=== PATIENT | male | born 1980 | race American Indian/Alaskan Native ===

== ENCOUNTER 2016-11-23 11:14 | Emergency (ER) | payer OTHER, SELFPAY ==
[2016-11-23 13:07] LABS: BLOOD UREA NITROGEN 9 mg/dL (7-18)
[2016-11-23 18:19] VITALS: BP 111/60
== END 2016-11-23 18:21 | disposition home or self-care (01) ==
LOC: ED 13:50
DX: F10.221 Alcohol dependence with intoxication delirium (principal)
CPT/HCPCS: 36415; 71010; 80048; 80307; 82040; 85025; 99285

== ENCOUNTER 2020-08-26 20:46 | Emergency (ER) | payer MEDICAID ==
[~2020-08-26] VITALS: Ht 188 cm; Wt 135.0 kg
--- NOTE | 2020-08-26 21:00 | NUR ---
PT BIBA FROM ALF FOR INTOXICATION OF METH, MARIJUANA AND ALCOHOL. PT IS CURRENTLY COMBATIVE, PLACED ON BEHAVIORAL RESTRAINTS PER MD ORDER. UNABLE TO ASSESS VITAL SIGNS AT THIS TIME.
--- NOTE | 2020-08-26 22:31 | NUR ---
PT AWAKE AND COOPERATIVE. PASSED ROAD TEST.
== END 2020-08-26 22:34 | disposition home or self-care (01) ==
LOC: ED 20:59
DX: G92 Toxic encephalopathy (principal); F10.120 Alcohol abuse with intoxication, uncomplicated; F15.120 Other stimulant abuse with intoxication, uncomplicated; Z72.9 Problem related to lifestyle, unspecified; Y90.0 Blood alcohol level of less than 20 mg/100 ml
CPT/HCPCS: 99283

== ENCOUNTER 2020-09-04 09:55 | Emergency (ER) | payer MEDICAID ==
[~2020-09-04] VITALS: Ht 175.3 cm; Wt 85.0 kg
[2020-09-04 11:01] VITALS: BP 108/74
--- NOTE | 2020-09-04 12:19 | NUR ---
Patient given discharge instructions and they have confirmed that they understand the instructions. Patient ambulatory with steady gait.
== END 2020-09-04 12:20 | disposition home or self-care (01) ==
LOC: ED 11:47
DX: S90.02XA Contusion of left ankle, initial encounter (principal); X50.1XXA Overexertion from prolonged static or awkward postures, initial encounter; Y93.89 Activity, other specified; Y92.488 Other paved roadways as the place of occurrence of the external cause; Y99.8 Other external cause status
CPT/HCPCS: 99283

== ENCOUNTER 2020-09-25 08:07 | Inpatient (IN) | payer MEDICAID ==
[~2020-09-25] VITALS: Ht 188 cm; Wt 108.7 kg
--- NOTE | 2020-09-25 08:22 | NUR ---
PT BIB EMS FOR BILATERAL FOOT SORES. PT STATES HE TOOK SOME FRIENDS PAIN MEDS FOR THE PAIN YESTERDAY AND THE FOOT PAIN AND SORES HAS BEEN HAPPENING "FOR AWHILE". STRONG SMELL OF ETOH. PT IS A POOR HISTORIAN, OFFERING VAGUE ANSWERS.
[2020-09-25 08:57] LABS: BASOPHILS % (AUTO) 2 % (0-1); EOSINOPHILS % (AUTO) 1 % (1-7); LYMPHOCYTES % (AUTO) 24 % (22-44); MEAN CORPUSCULAR HEMOGLOBIN 35.1 pg (27.5-34.5); MEAN CORPUSCULAR HGB CONC 34.2 g/dL (33.2-36.2); MEAN PLATELET VOLUME 7.6 fL (7.4-10.4); MONOCYTES % (AUTO) 6 % (2-9); NEUTROPHILS % (AUTO) 67 % (42-75); PLATELET COUNT 287 x10^3/uL (130-400); RED BLOOD COUNT 4.13 x10^6/uL (4.38-5.82); RED CELL DISTRIBUTION WIDTH 17.9 % (9.4-14.8)
[2020-09-25 09:08] LABS: MD NO
[2020-09-25 09:12] LABS: ANION GAP 7 mmol/L (5-15); CALCIUM 8.3 mg/dL (8.5-10.1); CHLORIDE 112 mmol/L (98-107); CREATININE 0.37 mg/dL (0.7-1.3)
--- NOTE | 2020-09-25 12:11 | NUR ---
PHONE REPORT TO MARIAN JOHNSON
[2020-09-25] MEDS ORDERED: KETOROLAC 30 MG/1 ML IV PRN (12:30)
[2020-09-25] MEDS ORDERED: VANCOMYCIN PER PHARMACY MC PRN (12:30)
[2020-09-25] MEDS ORDERED: POLYETHYLENE GLYCOL 17 GM PACKET PO PRN (12:30)
[2020-09-25] MEDS ORDERED: ONDANSETRON ODT 4 MG PO PRN (12:30)
[2020-09-25] MEDS ORDERED: CHLORDIAZEPOXIDE 25 MG CAPSULE PO PRN ×4 (12:30→14:30)
[2020-09-25] MEDS ORDERED: BISACODYL 10 MG SUPP PR PRN (12:30)
[2020-09-25] MEDS ORDERED: LABETALOL 5MG/ML, 20ML IVPush PRN (12:30)
[2020-09-25] MEDS ORDERED: ENALAPRILAT 1.25 MG/ML, 2ML IVPush PRN (12:30)
[2020-09-25] MEDS ORDERED: ONDANSETRON 2MG/ML, 2ML IVPush PRN (12:30)
[2020-09-25] MEDS ORDERED: DOCUSATE 100 MG CAPSULE PO PRN (12:30)
[2020-09-25 13:00] VITALS: BP 135/81
[2020-09-25] MEDS ORDERED: PLEASE ENTER MEASURED WEIGHT MC SCH (13:00)
[2020-09-25] MEDS ORDERED: PHARMACOKINETIC CONSULTATION MC ONE (13:00)
[2020-09-25] MEDS ORDERED: PHARMACOKINETIC MONITORING MC PRN (13:00)
[2020-09-25] MEDS: HYDROcodone/APAP 5/325 TABLET PO PRN ×2 (13:01→19:54)
[2020-09-25] MEDS: ENOXAPARIN 40 MG/0.4 ML SQ SCH (13:01)
[2020-09-25 13:12] LABS: HCT (SEDRATE) 41.1 % (39.2-51.8)
[2020-09-25] MEDS ORDERED: VANCOMYCIN 2,500 MG in SODIUM CHLORIDE 0.9% 500 ML IV ONE (13:30)
[2020-09-25] MEDS: SODIUM CHLORIDE 0.9% 1,000 ML IV SCH (13:56)
[2020-09-25] MEDS: PIPERACILLIN/TAZO/PMX 3.375GM 50 ML IV SCH ×2 (13:56→19:54)
[2020-09-25] MEDS ORDERED: CHLORDIAZEPOXIDE 10 MG CAPSULE PO PRN (14:30)
[2020-09-25] MEDS ORDERED: NICOTINE 21 MG/24 HR PATCH.TD24 TD ONE (14:30)
[2020-09-25] MEDS: MULTIVITAMIN 1 TABLET PO SCH (14:42)
[2020-09-25] MEDS: THIAMINE IV SCH (17:41)
[2020-09-25] MEDS: D5 IV SCH (17:41)
[2020-09-25] MEDS: MAGNESIUM SULFATE IV SCH (17:41)
[2020-09-25] MEDS: FOLIC ACID IV SCH (17:41)
[2020-09-25] MEDS: NACL IV SCH (17:41)
[2020-09-25 19:05] VITALS: BP 139/77
[2020-09-26 01:01] VITALS: BP 101/61
[2020-09-26] MEDS: PIPERACILLIN/TAZO/PMX 3.375GM 50 ML IV SCH ×4 (02:10→21:02)
[2020-09-26] MEDS: VANCOMYCIN 2,000 MG in SODIUM CHLORIDE 0.9% 500 ML IV SCH ×2 (03:01→16:00)
[2020-09-26 06:01] LABS: BASOPHILS % (AUTO) 1 % (0-1); EOSINOPHILS % (AUTO) 2 % (1-7); LYMPHOCYTES % (AUTO) 23 % (22-44); MEAN PLATELET VOLUME 7.6 fL (7.4-10.4); MONOCYTES % (AUTO) 8 % (2-9); NEUTROPHILS % (AUTO) 67 % (42-75); PLATELET COUNT 226 x10^3/uL (130-400)
[2020-09-26 06:05] LABS: MD NO
[2020-09-26 06:20] LABS: ALANINE AMINOTRANSFERASE 29 U/L (12-78); ALBUMIN 2.4 g/dL (3.4-5.0); ANION GAP 5 mmol/L (5-15); CALCIUM 8.2 mg/dL (8.5-10.1); CHLORIDE 108 mmol/L (98-107)
[2020-09-26 06:23] LABS: ALKALINE PHOSPHATASE 105 U/L (45-117); BILIRUBIN,TOTAL 0.5 mg/dL (0.2-1.0); CREATININE 0.58 mg/dL (0.7-1.3); TOTAL PROTEIN 6.2 g/dL (6.4-8.2)
[2020-09-26 07:40] VITALS: BP 124/72
[2020-09-26] MEDS: SODIUM CHLORIDE 0.9% 1,000 ML IV SCH ×2 (08:53→21:04)
[2020-09-26] MEDS: MULTIVITAMIN 1 TABLET PO SCH (08:53)
[2020-09-26 13:48] VITALS: BP 124/58
[2020-09-26] MEDS: ENOXAPARIN 40 MG/0.4 ML SQ SCH (14:11)
[2020-09-26] MEDS ORDERED: GADOTERATE 10 MMOL/20ML SYR ONE (14:50)
[2020-09-26 18:25] VITALS: BP 112/71
[2020-09-26] MEDS: NACL IV SCH (21:50)
[2020-09-26] MEDS: FOLIC ACID IV SCH (21:50)
[2020-09-26] MEDS: D5 IV SCH (21:50)
[2020-09-26] MEDS: MAGNESIUM SULFATE IV SCH (21:50)
[2020-09-26] MEDS: THIAMINE IV SCH (21:50)
[2020-09-27 01:26] VITALS: BP 112/71
[2020-09-27 02:52] LABS: ALANINE AMINOTRANSFERASE 31 U/L (12-78); ALBUMIN 2.3 g/dL (3.4-5.0); ANION GAP 9 mmol/L (5-15); CALCIUM 7.7 mg/dL (8.5-10.1); CHLORIDE 109 mmol/L (98-107)
[2020-09-27 02:54] LABS: ALKALINE PHOSPHATASE 115 U/L (45-117); BILIRUBIN,TOTAL 0.3 mg/dL (0.2-1.0); TOTAL PROTEIN 6.4 g/dL (6.4-8.2)
[2020-09-27 02:55] LABS: BASOPHILS % (AUTO) 1 % (0-1); EOSINOPHILS % (AUTO) 5 % (1-7); LYMPHOCYTES % (AUTO) 34 % (22-44); MD NO; MEAN CORPUSCULAR HEMOGLOBIN 34.9 pg (27.5-34.5); MEAN CORPUSCULAR HGB CONC 34.1 g/dL (33.2-36.2); MEAN PLATELET VOLUME 7.8 fL (7.4-10.4); MONOCYTES % (AUTO) 10 % (2-9); NEUTROPHILS % (AUTO) 51 % (42-75); PLATELET COUNT 200 x10^3/uL (130-400); RED CELL DISTRIBUTION WIDTH 17.1 % (9.4-14.8)
[2020-09-27] MEDS: PIPERACILLIN/TAZO/PMX 3.375GM 50 ML IV SCH ×2 (03:20→09:16)
[2020-09-27] MEDS: VANCOMYCIN 2,000 MG in SODIUM CHLORIDE 0.9% 500 ML IV SCH ×2 (04:09→16:44)
[2020-09-27 07:56] VITALS: BP 106/61
[2020-09-27] MEDS: MULTIVITAMIN 1 TABLET PO SCH (09:16)
[2020-09-27] MEDS: HYDROcodone/APAP 5/325 TABLET PO PRN (09:22)
[2020-09-27] MEDS: ENOXAPARIN 40 MG/0.4 ML SQ SCH (13:24)
[2020-09-27] MEDS: SODIUM CHLORIDE 0.9% 1,000 ML IV SCH ×2 (13:25→22:31)
[2020-09-27 13:28] VITALS: BP 115/72
[2020-09-27] MEDS: AMPICILLIN/SULBACTAM 3 GM in SODIUM CHLORIDE 0.9% 100 ML IV SCH ×2 (14:39→21:21)
[2020-09-27 14:52] LABS: AMPHETAMINE SCREEN, URINE Negative (Negative); BARBITURATE SCREEN, URINE Negative (Negative); BENZODIAZEPINE SCREEN, URINE Negative (Negative); CANNABINOID SCREEN, URINE Negative (Negative); COCAINE SCREEN, URINE Negative (Negative); METHADONE SCREEN, URINE Negative (Negative); OPIATE SCREEN, URINE Positive (Negative)
[2020-09-27 19:44] VITALS: BP 109/66
[2020-09-27] MEDS: THIAMINE IV SCH (22:29)
[2020-09-27] MEDS: D5 IV SCH (22:29)
[2020-09-27] MEDS: MAGNESIUM SULFATE IV SCH (22:29)
[2020-09-27] MEDS: FOLIC ACID IV SCH (22:29)
[2020-09-27] MEDS: NACL IV SCH (22:29)
[2020-09-28 01:36] VITALS: BP 112/74
[2020-09-28] MEDS: AMPICILLIN/SULBACTAM 3 GM in SODIUM CHLORIDE 0.9% 100 ML IV SCH ×5 (03:22→21:35)
[2020-09-28] MEDS: VANCOMYCIN 2,000 MG in SODIUM CHLORIDE 0.9% 500 ML IV SCH (04:26)
[2020-09-28 05:27] LABS: BASOPHILS % (AUTO) 1 % (0-1); EOSINOPHILS % (AUTO) 5 % (1-7); LYMPHOCYTES % (AUTO) 29 % (22-44); MEAN CORPUSCULAR HGB CONC 33.5 g/dL (33.2-36.2); MEAN PLATELET VOLUME 7.6 fL (7.4-10.4); MONOCYTES % (AUTO) 9 % (2-9); NEUTROPHILS % (AUTO) 57 % (42-75); PLATELET COUNT 223 x10^3/uL (130-400); RED BLOOD COUNT 3.67 x10^6/uL (4.38-5.82)
[2020-09-28 05:31] LABS: ANION GAP 7 mmol/L (5-15); CALCIUM 8.2 mg/dL (8.5-10.1); CHLORIDE 109 mmol/L (98-107); CREATININE 0.59 mg/dL (0.7-1.3)
[2020-09-28 05:37] LABS: MD NO
[2020-09-28 06:53] VITALS: BP 121/83
[2020-09-28] MEDS: SODIUM CHLORIDE 0.9% 1,000 ML IV SCH (09:14)
[2020-09-28] MEDS: MULTIVITAMIN 1 TABLET PO SCH (09:14)
[2020-09-28] MEDS ORDERED: VANCOMYCIN PER PHARMACY MC PRN (10:00)
[2020-09-28] MEDS: HYDROcodone/APAP 5/325 TABLET PO PRN (10:54)
[2020-09-28] MEDS: ENOXAPARIN 40 MG/0.4 ML SQ SCH (13:00)
[2020-09-28 13:18] VITALS: BP 122/67
[2020-09-28] MEDS: VANCOMYCIN 2,100 MG in SODIUM CHLORIDE 0.9% 500 ML IV SCH (16:26)
[2020-09-28 18:38] VITALS: BP 112/74
[2020-09-29] MEDS: AMPICILLIN/SULBACTAM 3 GM in SODIUM CHLORIDE 0.9% 100 ML IV SCH ×4 (03:20→20:56)
[2020-09-29] MEDS: VANCOMYCIN 2,100 MG in SODIUM CHLORIDE 0.9% 500 ML IV SCH (04:43)
[2020-09-29 05:41] LABS: HCT (SEDRATE) 39.1 % (39.2-51.8)
[2020-09-29 05:45] LABS: BASOPHILS % (AUTO) 1 % (0-1); EOSINOPHILS % (AUTO) 4 % (1-7); LYMPHOCYTES % (AUTO) 20 % (22-44); MEAN CORPUSCULAR HEMOGLOBIN 35.5 pg (27.5-34.5); MEAN CORPUSCULAR HGB CONC 35.2 g/dL (33.2-36.2); MEAN PLATELET VOLUME 7.5 fL (7.4-10.4); MONOCYTES % (AUTO) 7 % (2-9); NEUTROPHILS % (AUTO) 68 % (42-75); PLATELET COUNT 244 x10^3/uL (130-400); RED BLOOD COUNT 3.71 x10^6/uL (4.38-5.82); RED CELL DISTRIBUTION WIDTH 16.7 % (9.4-14.8)
[2020-09-29 05:48] LABS: ALBUMIN 2.6 g/dL (3.4-5.0); ANION GAP 4 mmol/L (5-15); C-REACTIVE PROTEIN, QUANT 0.27 mg/dL (0.02-0.49); CALCIUM 8.5 mg/dL (8.5-10.1); CHLORIDE 108 mmol/L (98-107)
[2020-09-29 05:51] LABS: ALANINE AMINOTRANSFERASE 40 U/L (12-78); ALKALINE PHOSPHATASE 105 U/L (45-117); BILIRUBIN,TOTAL 0.3 mg/dL (0.2-1.0); CREATININE 0.61 mg/dL (0.7-1.3); TOTAL PROTEIN 6.9 g/dL (6.4-8.2)
[2020-09-29 06:02] LABS: MD NO
[2020-09-29 06:45] VITALS: BP 98/59
[2020-09-29] MEDS: MULTIVITAMIN 1 TABLET PO SCH (09:11)
[2020-09-29 12:35] VITALS: BP 109/68
[2020-09-29] MEDS: ENOXAPARIN 40 MG/0.4 ML SQ SCH (13:00)
[2020-09-29] MEDS: VANCOMYCIN 1,800 MG in SODIUM CHLORIDE 0.9% 250 ML IV SCH (17:43)
[2020-09-29 18:39] VITALS: BP 109/63
[2020-09-30] MEDS: VANCOMYCIN 1,800 MG in SODIUM CHLORIDE 0.9% 250 ML IV SCH ×3 (02:10→18:03)
[2020-09-30] MEDS: AMPICILLIN/SULBACTAM 3 GM in SODIUM CHLORIDE 0.9% 100 ML IV SCH ×4 (03:44→21:49)
[2020-09-30 05:00] LABS: BASOPHILS % (AUTO) 3 % (0-1); EOSINOPHILS % (AUTO) 4 % (1-7); LYMPHOCYTES % (AUTO) 22 % (22-44); MEAN CORPUSCULAR HEMOGLOBIN 34.8 pg (27.5-34.5); MEAN CORPUSCULAR HGB CONC 33.3 g/dL (33.2-36.2); MEAN PLATELET VOLUME 7.5 fL (7.4-10.4); MONOCYTES % (AUTO) 10 % (2-9); NEUTROPHILS % (AUTO) 62 % (42-75); PLATELET COUNT 274 x10^3/uL (130-400); RED BLOOD COUNT 3.92 x10^6/uL (4.38-5.82); RED CELL DISTRIBUTION WIDTH 16.9 % (9.4-14.8)
[2020-09-30 05:01] LABS: MD NO
[2020-09-30 05:15] LABS: ANION GAP 6 mmol/L (5-15); CALCIUM 8.2 mg/dL (8.5-10.1); CHLORIDE 110 mmol/L (98-107)
[2020-09-30 05:17] LABS: CREATININE 0.63 mg/dL (0.7-1.3)
[2020-09-30] MEDS: MULTIVITAMIN 1 TABLET PO SCH (08:27)
[2020-09-30 08:35] VITALS: BP 107/68
[2020-09-30] MEDS: ENOXAPARIN 40 MG/0.4 ML SQ SCH (12:31)
[2020-09-30 14:20] VITALS: BP 108/63
[2020-09-30 18:41] VITALS: BP 102/58
[2020-10-01] MEDS: VANCOMYCIN 1,800 MG in SODIUM CHLORIDE 0.9% 250 ML IV SCH ×3 (02:02→17:44)
[2020-10-01] MEDS: AMPICILLIN/SULBACTAM 3 GM in SODIUM CHLORIDE 0.9% 100 ML IV SCH ×4 (03:54→21:07)
[2020-10-01 05:54] LABS: BASOPHILS % (AUTO) 2 % (0-1); EOSINOPHILS % (AUTO) 3 % (1-7); LYMPHOCYTES % (AUTO) 21 % (22-44); MEAN CORPUSCULAR HEMOGLOBIN 34.9 pg (27.5-34.5); MEAN CORPUSCULAR HGB CONC 33.1 g/dL (33.2-36.2); MEAN PLATELET VOLUME 7.8 fL (7.4-10.4); MONOCYTES % (AUTO) 12 % (2-9); NEUTROPHILS % (AUTO) 62 % (42-75); PLATELET COUNT 288 x10^3/uL (130-400); RED BLOOD COUNT 4.01 x10^6/uL (4.38-5.82); RED CELL DISTRIBUTION WIDTH 17.1 % (9.4-14.8)
[2020-10-01 05:55] LABS: MD NO
[2020-10-01 06:13] LABS: CHLORIDE 110 mmol/L (98-107)
[2020-10-01 06:32] LABS: ANION GAP 7 mmol/L (5-15); CALCIUM 8.3 mg/dL (8.5-10.1)
[2020-10-01 07:20] VITALS: BP 103/67
[2020-10-01] MEDS: MULTIVITAMIN 1 TABLET PO SCH (08:38)
[2020-10-01] MEDS: ENOXAPARIN 40 MG/0.4 ML SQ SCH (13:00)
[2020-10-01 14:07] VITALS: BP 111/60
[2020-10-01 18:39] VITALS: BP 104/67
[2020-10-02 01:38] VITALS: BP 113/69
[2020-10-02] MEDS: VANCOMYCIN 1,800 MG in SODIUM CHLORIDE 0.9% 250 ML IV SCH (01:53)
[2020-10-02] MEDS: AMPICILLIN/SULBACTAM 3 GM in SODIUM CHLORIDE 0.9% 100 ML IV SCH ×4 (03:35→21:25)
[2020-10-02 05:13] LABS: BASOPHILS % (AUTO) 2 % (0-1); EOSINOPHILS % (AUTO) 3 % (1-7); LYMPHOCYTES % (AUTO) 20 % (22-44); MEAN CORPUSCULAR HEMOGLOBIN 35.4 pg (27.5-34.5); MEAN PLATELET VOLUME 7.5 fL (7.4-10.4); MONOCYTES % (AUTO) 11 % (2-9); NEUTROPHILS % (AUTO) 64 % (42-75); PLATELET COUNT 286 x10^3/uL (130-400); RED BLOOD COUNT 3.88 x10^6/uL (4.38-5.82); RED CELL DISTRIBUTION WIDTH 16.7 % (9.4-14.8)
[2020-10-02 05:17] LABS: ANION GAP 5 mmol/L (5-15); CALCIUM 8.3 mg/dL (8.5-10.1); CHLORIDE 110 mmol/L (98-107)
[2020-10-02 05:18] LABS: CREATININE 0.61 mg/dL (0.7-1.3)
[2020-10-02 05:21] LABS: MD NO
[2020-10-02 07:43] VITALS: BP 105/64
[2020-10-02] MEDS: MULTIVITAMIN 1 TABLET PO SCH (08:42)
[2020-10-02] MEDS: ENOXAPARIN 40 MG/0.4 ML SQ SCH (13:00)
[2020-10-02 13:55] VITALS: BP 104/63
[2020-10-02 18:43] VITALS: BP 115/72
[2020-10-03 00:36] VITALS: BP 112/64
[2020-10-03] MEDS: AMPICILLIN/SULBACTAM 3 GM in SODIUM CHLORIDE 0.9% 100 ML IV SCH ×4 (03:36→23:09)
[2020-10-03 05:47] LABS: BASOPHILS % (AUTO) 3 % (0-1); EOSINOPHILS % (AUTO) 4 % (1-7); LYMPHOCYTES % (AUTO) 28 % (22-44); MEAN CORPUSCULAR HEMOGLOBIN 34.9 pg (27.5-34.5); MEAN CORPUSCULAR HGB CONC 34.1 g/dL (33.2-36.2); MEAN PLATELET VOLUME 7.2 fL (7.4-10.4); MONOCYTES % (AUTO) 12 % (2-9); NEUTROPHILS % (AUTO) 54 % (42-75); PLATELET COUNT 294 x10^3/uL (130-400); RED BLOOD COUNT 4.06 x10^6/uL (4.38-5.82); RED CELL DISTRIBUTION WIDTH 16.3 % (9.4-14.8)
[2020-10-03 05:59] LABS: ANION GAP 3 mmol/L (5-15); CALCIUM 8.6 mg/dL (8.5-10.1); CHLORIDE 109 mmol/L (98-107)
[2020-10-03 06:00] LABS: CREATININE 0.63 mg/dL (0.7-1.3)
[2020-10-03 06:16] LABS: MD SCAN
[2020-10-03 07:07] VITALS: BP 103/67
[2020-10-03] MEDS: MULTIVITAMIN 1 TABLET PO SCH (09:35)
[2020-10-03] MEDS: ENOXAPARIN 40 MG/0.4 ML SQ SCH (13:00)
[2020-10-03 13:22] VITALS: BP 103/64
[2020-10-03 18:50] VITALS: BP 94/54
[2020-10-03 19:26] VITALS: BP 102/61
[2020-10-04 00:30] VITALS: BP 97/62
[2020-10-04] MEDS: AMPICILLIN/SULBACTAM 3 GM in SODIUM CHLORIDE 0.9% 100 ML IV SCH ×4 (05:09→22:49)
[2020-10-04 06:40] VITALS: BP 109/66
[2020-10-04] MEDS: MULTIVITAMIN 1 TABLET PO SCH (09:36)
[2020-10-04] MEDS: ENOXAPARIN 40 MG/0.4 ML SQ SCH (13:00)
[2020-10-04 13:21] VITALS: BP 94/52
[2020-10-04 19:25] VITALS: BP 109/65
[2020-10-05 01:40] VITALS: BP 102/63
[2020-10-05] MEDS: AMPICILLIN/SULBACTAM 3 GM in SODIUM CHLORIDE 0.9% 100 ML IV SCH ×4 (05:12→23:16)
[2020-10-05 07:36] VITALS: BP 102/53
[2020-10-05] MEDS: MULTIVITAMIN 1 TABLET PO SCH (09:12)
[2020-10-05 12:53] VITALS: BP 107/63
[2020-10-05] MEDS: ENOXAPARIN 40 MG/0.4 ML SQ SCH ×2 (13:00→13:42)
[2020-10-05 18:21] VITALS: BP 107/71
[2020-10-06] MEDS: AMPICILLIN/SULBACTAM 3 GM in SODIUM CHLORIDE 0.9% 100 ML IV SCH ×4 (05:16→23:15)
[2020-10-06 06:00] LABS: HCT (SEDRATE) 40.8 % (39.2-51.8)
[2020-10-06 06:01] LABS: BASOPHILS % (AUTO) 1 % (0-1); EOSINOPHILS % (AUTO) 3 % (1-7); LYMPHOCYTES % (AUTO) 26 % (22-44); MEAN CORPUSCULAR HEMOGLOBIN 35.4 pg (27.5-34.5); MEAN CORPUSCULAR HGB CONC 33.8 g/dL (33.2-36.2); MEAN PLATELET VOLUME 7.4 fL (7.4-10.4); MONOCYTES % (AUTO) 8 % (2-9); NEUTROPHILS % (AUTO) 62 % (42-75); PLATELET COUNT 294 x10^3/uL (130-400); RED BLOOD COUNT 3.95 x10^6/uL (4.38-5.82); RED CELL DISTRIBUTION WIDTH 16.2 % (9.4-14.8)
[2020-10-06 06:07] LABS: ALBUMIN 2.8 g/dL (3.4-5.0); CHLORIDE 112 mmol/L (98-107)
[2020-10-06 06:14] LABS: ALANINE AMINOTRANSFERASE 23 U/L (12-78); ALKALINE PHOSPHATASE 81 U/L (45-117); ANION GAP 5 mmol/L (5-15); BILIRUBIN,TOTAL 0.3 mg/dL (0.2-1.0); C-REACTIVE PROTEIN, QUANT 0.04 mg/dL (0.02-0.49); CALCIUM 8.7 mg/dL (8.5-10.1); CREATININE 0.69 mg/dL (0.7-1.3); TOTAL PROTEIN 6.9 g/dL (6.4-8.2)
[2020-10-06 06:16] LABS: MD NO
[2020-10-06 06:52] VITALS: BP 103/68
[2020-10-06] MEDS: MULTIVITAMIN 1 TABLET PO SCH (08:30)
[2020-10-06] MEDS: ENOXAPARIN 40 MG/0.4 ML SQ SCH (13:00)
[2020-10-06] MEDS: ACETAMINOPHEN 325 MG TABLET PO PRN (19:39)
[2020-10-06 20:06] VITALS: BP 111/67
[2020-10-07 02:40] VITALS: BP 118/74
[2020-10-07] MEDS: AMPICILLIN/SULBACTAM 3 GM in SODIUM CHLORIDE 0.9% 100 ML IV SCH ×4 (05:05→22:59)
[2020-10-07 07:56] VITALS: BP 111/73
[2020-10-07] MEDS: MULTIVITAMIN 1 TABLET PO SCH (09:00)
[2020-10-07] MEDS: ACETAMINOPHEN 325 MG TABLET PO PRN (09:13)
[2020-10-07] MEDS: ENOXAPARIN 40 MG/0.4 ML SQ SCH (13:00)
[2020-10-07 15:36] VITALS: BP 107/64
[2020-10-07 19:31] VITALS: BP 115/76
[2020-10-08 01:04] VITALS: BP 95/56
[2020-10-08] MEDS: AMPICILLIN/SULBACTAM 3 GM in SODIUM CHLORIDE 0.9% 100 ML IV SCH ×4 (05:00→23:40)
[2020-10-08 06:48] VITALS: BP 113/72
[2020-10-08] MEDS: MULTIVITAMIN 1 TABLET PO SCH (08:23)
[2020-10-08] MEDS: ENOXAPARIN 40 MG/0.4 ML SQ SCH (11:48)
[2020-10-08 12:06] VITALS: BP 119/79
[2020-10-08 19:55] VITALS: BP 101/64
[2020-10-09 01:28] VITALS: BP 103/62
[2020-10-09] MEDS: AMPICILLIN/SULBACTAM 3 GM in SODIUM CHLORIDE 0.9% 100 ML IV SCH ×4 (05:08→23:12)
[2020-10-09 07:08] VITALS: BP 111/72
[2020-10-09] MEDS: MULTIVITAMIN 1 TABLET PO SCH (07:27)
[2020-10-09] MEDS: ENOXAPARIN 40 MG/0.4 ML SQ SCH (11:37)
[2020-10-09 12:53] VITALS: BP 105/66
[2020-10-09 21:00] VITALS: BP 144/87
[2020-10-10 01:51] VITALS: BP 106/64
[2020-10-10] MEDS: AMPICILLIN/SULBACTAM 3 GM in SODIUM CHLORIDE 0.9% 100 ML IV SCH ×4 (05:43→23:08)
[2020-10-10 08:00] VITALS: BP 103/59
[2020-10-10] MEDS: MULTIVITAMIN 1 TABLET PO SCH (11:06)
[2020-10-10] MEDS: ENOXAPARIN 40 MG/0.4 ML SQ SCH (13:00)
[2020-10-10 13:22] VITALS: BP 108/69
[2020-10-10 20:25] VITALS: BP 104/69
[2020-10-11 00:05] VITALS: BP 108/67
[2020-10-11] MEDS: AMPICILLIN/SULBACTAM 3 GM in SODIUM CHLORIDE 0.9% 100 ML IV SCH ×4 (05:02→23:17)
[2020-10-11 07:04] VITALS: BP 105/67
[2020-10-11 08:12] LABS: BASOPHILS % (AUTO) 1 % (0-1); EOSINOPHILS % (AUTO) 5 % (1-7); LYMPHOCYTES % (AUTO) 30 % (22-44); MEAN CORPUSCULAR HEMOGLOBIN 34.7 pg (27.5-34.5); MEAN CORPUSCULAR HGB CONC 33.1 g/dL (33.2-36.2); MEAN PLATELET VOLUME 7.8 fL (7.4-10.4); MONOCYTES % (AUTO) 7 % (2-9); NEUTROPHILS % (AUTO) 58 % (42-75); PLATELET COUNT 315 x10^3/uL (130-400); RED BLOOD COUNT 4.41 x10^6/uL (4.38-5.82)
[2020-10-11 08:25] LABS: ALBUMIN 3.2 g/dL (3.4-5.0); ANION GAP 5 mmol/L (5-15); CALCIUM 8.9 mg/dL (8.5-10.1); CHLORIDE 106 mmol/L (98-107)
[2020-10-11 08:28] LABS: ALANINE AMINOTRANSFERASE 27 U/L (12-78); ALKALINE PHOSPHATASE 85 U/L (45-117); BILIRUBIN,TOTAL 0.4 mg/dL (0.2-1.0); CREATININE 0.67 mg/dL (0.7-1.3); TOTAL PROTEIN 7.7 g/dL (6.4-8.2)
[2020-10-11 08:42] LABS: MD MORPH REVIEW ONLY
[2020-10-11 08:43] LABS: <PLATELET ESTIMATE> ADEQUATE; <PLT MORPHOLOGY> NORMAL PLT MORPH; ANISOCYTOSIS 1+
[2020-10-11] MEDS: MULTIVITAMIN 1 TABLET PO SCH (09:11)
[2020-10-11] MEDS: ENOXAPARIN 40 MG/0.4 ML SQ SCH (12:48)
[2020-10-11 13:02] VITALS: BP 104/65
[2020-10-11 19:28] VITALS: BP 110/66
[2020-10-11] MEDS: ACETAMINOPHEN 325 MG TABLET PO PRN (21:59)
[2020-10-12 00:21] VITALS: BP 95/54
[2020-10-12] MEDS: AMPICILLIN/SULBACTAM 3 GM in SODIUM CHLORIDE 0.9% 100 ML IV SCH ×4 (04:58→23:36)
[2020-10-12 06:29] VITALS: BP 111/77
[2020-10-12] MEDS: MULTIVITAMIN 1 TABLET PO SCH (09:41)
[2020-10-12 12:11] VITALS: BP 103/65
[2020-10-12] MEDS: ENOXAPARIN 40 MG/0.4 ML SQ SCH (12:27)
[2020-10-12 19:19] VITALS: BP 109/65
== END 2020-10-13 05:55 | disposition left against medical advice (07) | DRG 603 ==
LOC: ED 08:43 → EDIP 11:31 → 3N 12:39
PROVIDERS: ADMIT Hospitalist; ATTEND Hospitalist
DX: L03.116 Cellulitis of left lower limb (principal); T69.022A Immersion foot, left foot, initial encounter; F10.239 Alcohol dependence with withdrawal, unspecified; I96 Gangrene, not elsewhere classified; T69.021A Immersion foot, right foot, initial encounter; F12.90 Cannabis use, unspecified, uncomplicated; F19.10 Other psychoactive substance abuse, uncomplicated; F15.10 Other stimulant abuse, uncomplicated; M67.40 Ganglion, unspecified site; I10 Essential (primary) hypertension; F10.229 Alcohol dependence with intoxication, unspecified; Y90.8 Blood alcohol level of 240 mg/100 ml or more; X50.1XXA Overexertion from prolonged static or awkward postures, initial encounter; Y92.89 Other specified places as the place of occurrence of the external cause; Z59.0 Homelessness; Z53.29 Procedure and treatment not carried out because of patient's decision for other reasons
CPT/HCPCS: 36415; 80048; 80053; 80074; 80202; 80307; 80320; 82040; 83735; 84100; 85025; 85651; 86140; 86592; 87040; 87070; 87077; 87081; 87205; 87806; 93922; 93970; 96374; 99285; G0378; J0295; J1650; J2543; J3370; J3411; J3475; J7042; A9575; G0475; G0480; J7030; J7040; J7050